=== PATIENT | female | born 1970 | race Hispanic/Latino ===

== ENCOUNTER 2022-11-12 13:05 | Emergency (ER) | payer OTHER ==
[~2022-11-12] VITALS: Ht 162.6 cm; Wt 84.8 kg
[2022-11-12] MEDS ORDERED: AMLODIPINE BESYL5 MG PO (13:41)
[2022-11-12] MEDS ORDERED: TIZANIDINE HCL4 M1 PO (13:41)
== END 2022-11-12 17:11 | disposition home or self-care (01) ==
LOC: FSED 13:23
DX: R07.89 Other chest pain (principal); R06.02 Shortness of breath; I10 Essential (primary) hypertension; K21.9 Gastro-esophageal reflux disease without esophagitis
CPT/HCPCS: 71046; 80053; 82553; 84484; 85025; 93005; 99284